=== PATIENT | male | born 1995 | race African-American/Black ===

== ENCOUNTER 2016-07-12 13:09 | Emergency (ER) | payer BC ==
[~2016-07-12] VITALS: Ht 182.9 cm; Wt 85.0 kg
[2016-07-12 13:11] VITALS: BP 140/71; PULSE 72; RESP 15; TEMP 98.2; O2SAT 98
--- NOTE | 2016-07-12 14:36 | PD ---
HPI Chief Complaint: Wound/Suture/Staple Re-Check Time Seen by Provider: 14:34 Travel History International Travel<30 days: No Contact w/Intl Traveler<30days: No Traveled to known affect area: No History of Present Illness HPI 20-year-old male presents to the emergency department requesting suture removal to his left elbow from an injury that occurred 8 days ago. He was seen at [facility] in [place] and was told to have the sutures removed in a week. He denies fever, chills, nausea, vomiting. Denies paresthesias, loss of sensation , decreased range of motion, decreased strength to the affected extremity. Has been applying antibiotic ointment and keeping the area clean and dry. Denies drainage from the laceration site. Reports being up-to-date on his tetanus vaccination. No other modifying factors or associated signs and symptoms. [facility] Social History Tobacco Use: No Review of Systems Except as stated in HPI: all other systems reviewed are Neg Physical Exam Narrative GENERAL: Well-nourished, well-developed male patient, in no acute distress; afebrile, nontoxic-appearing SKIN: Warm and dry. Left elbow laceration is well approximated with sutures intact and without erythema, edema, drainage. No signs of infection. Left approximately supple and non-tense with 2+ radial pulse and sensory intact without erythema or edema. HEAD: Atraumatic. Normocephalic. EYES: Pupils equal and round. No scleral icterus. No injection or drainage. ENT: Mucosa pink and moist. Airway patent. NECK: Trachea midline. CARDIOVASCULAR: Regular rate. RESPIRATORY: No accessory muscle use. GASTROINTESTINAL: Flat. MUSCULOSKELETAL: No obvious deformities. No clubbing. No cyanosis. No edema. NEUROLOGICAL: Awake and alert. Oriented 3. No obvious cranial nerve deficits. Motor grossly within normal limits. Normal speech. PSYCHIATRIC: Appropriate mood and affect; insight and judgment normal. Data Data Last Documented VS Vital Signs Date Time Temp Pulse Resp B/P Pulse Ox O2 Delivery O2 Flow Rate FiO2 07/12/16 13:11 98.2 72 15 140/71 98 MDM Medical Decision Making Medical Screen Exam Complete: Yes Emergency Medical Condition: Yes Medical Record Reviewed: Yes Differential Diagnosis Suture removal, wound recheck, medical clearance Narrative Course 20-year-old male presents for removal of sutures to his left elbow. The wound is well approximated with sutures intact. No signs of infection. Sutures removed. Patient tolerated well. Patient verbalizes understanding and agreement with treatment plan. Patient is medically cleared and stable for discharge. Discussed reasons to return to the emergency department. Instructed patient to follow up with primary care provider. Patient agrees with treatment plan. The patients vital signs are stable and the patient is stable for outpatient follow-up and treatment. Patient discharged home, stable and in no acute distress. Diagnosis Primary Impression: Encounter for removal of sutures Referrals: Primary Care Physician Patient Instructions: Acute Wound Care (ED), General Instructions, Stitches Removal (ED) Departure Forms: School Release, Return to School Date: Jul 13, 2016 Tests/Procedures Additional Instructions: Follow-up with primary care provider Return to the emergency department immediately with worsening of symptoms Med/Other Pt SpecificInfo: No Change to Meds, No Meds Exist/No RX given Disposition: 01 DISCHARGE HOME Condition: Stable Goldie Alonso Jul 12, 2016 14:36
== END 2016-07-12 15:06 | disposition home or self-care (01) ==
LOC: NETRI 13:09
DX: S51.012D Laceration without foreign body of left elbow, subsequent encounter (principal); X58.XXXD Exposure to other specified factors, subsequent encounter; Z48.02 Encounter for removal of sutures
CPT/HCPCS: 99281